=== PATIENT | male | born 1970 | race Hispanic/Latino ===

== ENCOUNTER 2024-03-18 08:18 | Emergency (ER) | payer OTHER, SELFPAY ==
[2024-03-18 08:35] VITALS: BP 129/86; PULSE 104; RESP 18; TEMP 37.3; O2SAT 97
--- NOTE | 2024-03-18 08:59 | ED.URI ---
HPI - URI/Sore Throat General Chief Complaint: Upper Respiratory Infection Stated Complaint: cough,fever Time Seen by Provider: 03/18/24 08:50 Source: patient and RN notes reviewed Mode of arrival: ambulatory Limitations: no limitations History of Present Illness HPI Narrative: Patient presents today with a 4 day history of intermittent subjective fever, body aches, sore throat, cough, congestion, rhinorrhea. Denies shortness of breath or chest pain. States 1 episode of blood-tinged sputum this morning. He has been taking ibuprofen some mild relief and currently rates his pain 8/10. States was sick with similar symptoms last week and self resolved. Related Data Home Medications Medication Instructions Recorded Confirmed No Home Medications 03/18/24 03/18/24 Allergies Allergy/AdvReac Type Severity Reaction Status Date / Time No Known Allergies Allergy Verified 03/18/24 08:32 Review of Systems Review of Systems: CONSTITUTIONAL: Denies chills, or sweats.+ body aches, subjective fever EYES: Denies visual changes, redness, or discharge. ENT: Denies otalgia.+ sore throat, congestion, rhinorrhea CARDIOVASCULAR: Denies chest pain, palpitations, or edema. RESPIRATORY: Denies dyspnea.+ cough GASTROINTESTINAL: Denies abdominal pain, nausea, vomiting, or diarrhea. GENITOURINARY: Denies dysuria or hematuria. SKIN: Denies rash, itching, or wounds. MUSCULOSKELETAL: Denies back pain, joint pain, or myalgia. NEUROLOGIC: Denies headache, numbness, tingling, or weakness. PSYCH: Denies depression or anxiety. PMFSH Comments At time of signature, I have reviewed and agree with nursing past medical, surgical, social and family history unless otherwise noted. Please see nursing chart for further information. There is no relevant family history pertinent to the presenting complaint Exam Narrative: GENERAL: Mildly ill-appearing, well-nourished, and in no acute distress. HEAD: Normocephalic, atraumatic. EYES: EOMI. No redness or drainage. Conjunctivae normal. ENT: Mucous membranes pink and moist. Nares mild congestion. No rhinorrhea. TMs normal bilaterally. Throat mildly erythematous without edema or exudate. Uvula midline. NECK: Normal AROM. Supple. No lymphadenopathy. CHEST: No respiratory distress. Clear to auscultation. HEART: Regular rate and rhythm. No murmur appreciated. EXTREMITIES: Normal range of motion. No edema. SKIN: Warm, dry, no rash. Capillary refill normal. Normal skin turgor. NEURO: No focal deficits. Alert and oriented x3. Gait steady. PSYCH: Normal affect. No signs of depression or anxiety. Course Course Level of Care: Express Care Visit Vital Signs Vital signs: Vital Signs Temperature 99.1 F 03/18/24 08:35 Pulse Rate 104 H 03/18/24 08:35 Respiratory Rate 18 03/18/24 08:35 Blood Pressure 129/86 03/18/24 08:35 Pulse Oximetry 97 03/18/24 08:35 Oxygen Delivery Room Air 03/18/24 08:35 Temperature 99.1 F 03/18/24 08:35 Pulse Rate 104 H 03/18/24 08:35 Respiratory Rate 18 03/18/24 08:35 Blood Pressure 129/86 03/18/24 08:35 Pulse Oximetry 97 03/18/24 08:35 Oxygen Delivery Room Air 03/18/24 08:35 Reviewed MDM - URI/Sore Throat MDM Narrative Medical decision making narrative: Testing negative. Strep culture pending. Symptoms likely viral in etiology. No prescription medications indicated at this time. Discussed [id number] medication use and duration of illness. Anticipatory guidance given. Differential Diagnosis Differential diagnosis: Likely upper respiratory infection, viral infection, bronchitis, influenza, pharyngitis and other (COVID, strep throat) Lab Data Attestation: I reviewed the patient's lab results. Lab results narrative: COVID and rapid strep negative Labs: Influenza A Screen Negative Reference Range: Negative Influenza B Screen Negativ
== END 2024-03-18 09:10 | disposition home or self-care (01) ==
PROVIDERS: Emergency Provider Nurse Practitioner; PCP Registered Nurse
DX: J06.9 Acute upper respiratory infection, unspecified (principal); Z20.822 Contact with and (suspected) exposure to COVID-19
CPT/HCPCS: 87081; 87426; 87804; 87880; 99213; G0463